=== PATIENT | female | born 1980 | race Caucasian/White ===

== ENCOUNTER → 2023-07-27 14:17 | Outpatient (BNVA) | payer MEDICARE, MEDICAID, SELFPAY | PROVIDERS: PCP Family Medicine; Visit Provider Family Medicine | DX: E03.9 Hypothyroidism, unspecified (principal); R73.03 Prediabetes | CPT/HCPCS: 80053; 83036; 84439; 84443; 84480; 85025 ==

== ENCOUNTER 2023-08-04 13:23 | Outpatient (CLI) | payer MEDICARE, MEDICAID, SELFPAY ==
--- NOTE | 2023-08-04 15:00 | US_ITS ---
WS: [id number] THYROID ULTRASOUND HISTORY: goiter COMPARISON: None available. Right lobe: 1.9 cm x 1.5 cm x 3.7 cm (w x ap x l). Volume: 5.1 cm3. Heterogeneous enlarged thyroid. No discrete well-formed nodules. No increased vascularity. Normal cer vical chain lymph nodes. Left lobe: 1.6 cm x 1.2 cm x 3.4 cm (w x ap x l). Volume: 3.2 cm3. Mildly enlarged heterogeneous nodular thyroid. No discrete nodules. Mild increased vascularity throug hout the gland. Isthmus: 0.2 cm. US/US thyroid [id number] IMPRESSION: 1. Multinodular thyroid. Heterogeneous nodular gland. No discrete nodules are well-defined. Suggest yearly ultrasound evaluation to document stability. If an y nodules become apparent ultrasound can be performed. 2. No adenopathy.
== END 2023-08-04 13:24 | disposition home or self-care (01) ==
LOC: RAD 13:23
PROVIDERS: PCP Family Medicine; Visit Provider Family Medicine
DX: E04.9 Nontoxic goiter, unspecified (principal); E04.2 Nontoxic multinodular goiter
CPT/HCPCS: 76536

== ENCOUNTER 2023-10-12 14:28 | Outpatient (CLI) | payer OTHER, MEDICARE, SELFPAY ==
--- NOTE | 2023-10-12 15:00 | MM_ITS ---
WS: [id number] BILATERAL 3D TOMOSYNTHESIS DIGITAL SCREENING MAMMOGRAM WITH CAD CLINICAL INFORMATION: screening HISTORY: Screening mammogram. No current complaints. COMPARISON: None. TECHNIQUE: Bilateral CC and MLO views. FINDINGS: Fatty-replaced breasts bilaterally. No suspicious focal mass, asymmetry, calcifications, or bpm architect ural distortion. No evidence of malignancy. MM/[place] [id number] IMPRESSION: BI-RADS: 1-Negative FOLLOW UP: 1 Year Follow-up Recommend return to annual screening mammography.
== END 2023-10-12 14:29 | disposition home or self-care (01) ==
LOC: RAD 14:29
PROVIDERS: PCP Family Medicine; Visit Provider Family Medicine
DX: Z12.31 Encounter for screening mammogram for malignant neoplasm of breast (principal); Z13.6 Encounter for screening for cardiovascular disorders; T14.8XXA Other injury of unspecified body region, initial encounter; W57.XXXA Bitten or stung by nonvenomous insect and other nonvenomous arthropods, initial encounter
CPT/HCPCS: 77063; 77067; 80061; 86618; 86666; 86757

== ENCOUNTER → 2024-10-04 13:00 | Outpatient (BNVA) | payer MEDICARE, MEDICAID, SELFPAY | PROVIDERS: PCP Family Medicine; Visit Provider Family Medicine | DX: E03.9 Hypothyroidism, unspecified (principal); R79.89 Other specified abnormal findings of blood chemistry; Z76.89 Persons encountering health services in other specified circumstances; R73.03 Prediabetes | CPT/HCPCS: 80053; 80061; 82607; 83036; 84439; 84443; 85025 ==

== ENCOUNTER → 2024-11-28 12:57 | Outpatient (BNVA) | payer MEDICARE, SELFPAY | PROVIDERS: PCP Family Medicine; Visit Provider Internal Medicine | DX: R00.1 Bradycardia, unspecified (principal); R00.2 Palpitations; R73.03 Prediabetes; E03.9 Hypothyroidism, unspecified; F17.210 Nicotine dependence, cigarettes, uncomplicated | CPT/HCPCS: 99204 ==

== ENCOUNTER 2024-12-29 12:08 | Outpatient (CLI) | payer MEDICARE, SELFPAY ==
--- NOTE | 2024-12-29 14:15 | USCV_ITS ---
Lilly Fox Age: 44 Gender: F : 1980 Exam Date: 12/29/2024 12:28 Ordering Phys: Aristeo Piña M.D ([email or web address]) Technologist: [place] [facility] [place]: near syncope BP: 110 / 75 HR: 64 Rhythm: Sinus Technical Quality: Adequate MEASUREMENTS (Male / Female) Normal Values 2D ECHO LV Diastolic Diameter PLAX 4.5 cm 4.2 - 5.9 / 3.9 - 5.3 cm IVS Diastolic Thickness 1.2 cm 0.6 - 1.0 / 0.6 - 0.9 cm IVS Systolic Thickness 1.3 cm LVPW Diastolic Thickness 1.0 cm 0.6 - 1.0 / 0.6 - 0.9 cm LVPW Systolic Thickness 1.2 cm LVOT Diameter 2.0 cm LV Ejection Fraction 2D Teich 66.0 % LV Ejection Fraction MOD 4C 58.1 % LV Ejection Fraction MOD 2C 76.9 % LV Ejection Fraction 2C AL 77.6 % LA Diameter 3.5 cm RA Systolic Volume 4C AL 35.2 ml RA Systolic Volume 4C MOD 33.8 ml LA Sys Volume AL 48.2 cm cubed LA Sys Volume Index AL 24.6 cm cubed/m squared Aorta at Sinotubular Diameter 2.8 cm IVC Diameter 1.6 cm M-MODE LA Ao Ratio MM 1.3 AV Cusp Separation MM 1.9 cm DOPPLER AV Peak Velocity 125.0 cm/s LVOT Peak Velocity 91.0 cm/s AV Area Cont Eq vti 2.7 cm squared AV Area Cont Eq pk 2.4 cm squared MV Peak Velocity 97.0 cm/s MV Area PHT 3.0 cm squared Mitral E to A Ratio 1.7 TR Peak Velocity 211.0 cm/s TR Peak Gradient 17.8 mmHg TV Peak E Velocity 97.0 cm/s PV Peak Velocity 101.0 cm/s FINDINGS Left Ventricle Normal left ventricular size and systolic function, EF 55-60%. No regional wall motion abnormalities. Right Ventricle Normal in size and function Right Atrium Normal in size Left Atrium Normal in size Mitral Valve Structurally normal mitral valve. Trace mitral valve regurgitation. Aortic Valve Structurally normal aortic valve. No aortic valve stenosis. Tricuspid Valve Insufficient TR jet to calculate RVSP Pulmonic Valve Trace pulmonic regurgitation Pericardium Normal Aorta Normal in size IVC Appears to be normal CONCLUSIONS LV systolic function is normal with EF of 55-60% Trace mitral regurgitation Trace pulmonic regurgitation No comparison studies are available. Aristeo Piña MD (Electronically Signed) Final Date: 03 January 2025 09:48 S
== END 2024-12-29 12:09 | disposition home or self-care (01) ==
LOC: RAD 12:11
PROVIDERS: PCP Family Medicine; Visit Provider Internal Medicine
DX: R55 Syncope and collapse (principal)
CPT/HCPCS: 93306

== ENCOUNTER 2025-02-16 20:58 | Emergency (ER) | payer MEDICARE, SELFPAY ==
--- OUTSIDE RECORDS SUMMARY | 2024-01-23 03:00 | XMS_ITS ---
Author Organization [facility] Address [address] [facility] [address] [place] [address] Care Team Providers Care Metal Template Maker Name Role Phone Dusty Friedman Primary Care Provider Unavailabl e Migration, Provider Unavailable Unavailable REASON FOR VISIT EMR-Marino Encounters Encounter Location Date Provider Diagnosis [facility] [address] [facility] [address] [place] [address] 01/23/2024 Provider Migration Plan Of Treatment No Information Progress Notes * Kevin JURADOB: [birth year] (44 yo M)Acc No.[id number]:01/23/2024 Patient: Diana PRATHERa :1980 A ge:43 Y S ex:Male Phone: Address:[address], [place], [address] Subjective: * Chief Complaints: * E MR-Marino * Medical History: * Surgical History: * Hospitalization/Major Diagno stic Procedure: * Medications: Objective: * Vitals: * Physical Examination: Assessment: Plan: * Treatment: * Procedure Codes: * * Date:
--- OUTSIDE RECORDS SUMMARY | 2024-01-24 03:00 | XMS_ITS ---
Author Organization [facility] Address [address] [facility] [address] [place] [address] Care Team Providers Care Promotions Assistant Name Role Phone Dusty Friedman Primary Care Provider Unavailabl e Migration, Provider Unavailable Unavailable REASON FOR VISIT EMR-Marino Encounters Encounter Location Date Provider Diagnosis [facility] [address] [facility] [address] [facility] [address] [place] [address] 01/24/2024 Provider Migration Plan Of Treatment No Information Progress Notes * Kevin JURADOB: [birth year] (44 yo M)Acc No.[id number]:01/24/2024 Patient: Diana PRATHERa :1980 A ge:43 Y S ex:Male Phone: Address:[address], [place], [address] Subjective: * Chief Complaints: * E MR-Marino * Medical History: * Surgical History: * Hospitalization/Major Diagno stic Procedure: * Medications: Objective: * Vitals: * Physical Examination: Assessment: Plan: * Treatment: * Procedure Codes: * * Date:
[2025-02-16 21:05] VITALS: BP 121/84; PULSE 60; RESP 16; TEMP 36.7; O2SAT 98; BMI 33.6
--- OUTSIDE RECORDS SUMMARY | 2025-02-16 21:06 | XMS_ITS | Patient Health Record ---
Author Organization [facility] Address [address] [place] [address] Care Team Providers Care Data Administrator Name Role Phone KENDALL SON Unavailable [phone] Reason For Referral No Information Problems Problem Type SNOMED Code ICD Code Onset Dates Problem Status W/U Status Risk Notes Problem Generalized abdominal pain (577509655) Generalized abdominal pain (R10.84) Active confirmed Plan Of Treatment No Information Insurance Providers Payer Name Payer Address Payer Phone Subscriber Number Group Number Insured Name Patient Relationship to Insured Coverage Start Date Coverage End Date [place] [employer] [place] [address] [address] [place] [address] [phone] [id number] Lilly Felipe Self - patient is the insured
--- OUTSIDE RECORDS SUMMARY | 2025-02-16 21:06 | XMS_ITS | Patient Health Record ---
Author Organization [facility] Address [address] [address] Care Team Providers Care Newspaper Editor Managing Name Role Phone Dusty Friedman Primary Care Provider Unavailabl e Reason For Referral No Information Plan Of Treatment No Information
--- NOTE | 2025-02-16 22:18 | XRR_ITS ---
PROCEDURE INFORMATION: Exam: XR Chest Exam date and time: 02/16/2025 10:27 PM Age: 44 years old Clinical indication: Shortness of breath TECHNIQUE: Imaging protocol: Radiologic exam of the chest. Views: 2 views. COMPARISON: No relevant prior studies available. FINDINGS: Lungs: Unremarkable. No consolidation. Pleural spaces: Unremarkable. No pleural effusion. No pneumothorax. Heart/Mediastinum: Unremarkable. No cardiomegaly. Bones/joints: Unremarkable. XR/XR chest 2V* [id number] IMPRESSION: No acute findings.
--- NOTE | 2025-02-16 22:19 | ECG_ITS ---
[facility] Test Date: 2025-02-16 Pat Name: Lilly Fox Department: Room: Gender: Female Relationship Assoc: : 1980 Requested By: Mari Buitrago Order Number: [id number] Ana M MD: Aristeo Piña M.D. Measurements Intervals [place] Rate: 58 P: 64 OK: 179 QRS: 77 QRSD: 92 T: 66 QT: 411 QTc: 404 Interpretive Statements SINUS BRADYCARDIA WITH SINUS ARRHYTHMIA INCOMPLETE RIGHT BUNDLE BRANCH BLOCK [90+ ms QRS DURATION, TERMINAL R IN V1/V2, 40+ ms S IN I/aVL/V4/V5/V6] No previous ECG available for comparison Electronically Signed On 02-17-2025 13:06:03 CINDER PIT WORKER by Aristeo Piña M.D. [email or web address]
[2025-02-16 22:53] VITALS: BP 119/79; PULSE 51; RESP 16; O2SAT 98
[2025-02-16 23:27] LABS: Hematocrit 40.6 % (36-47); Hemoglobin 13.50 g/dL (11.27-16.99); Mean Corpuscular HGB Conc 33.3 g/dL (30-55); Mean Corpuscular Hemoglobin 30.1 pg (27-33); Mean Corpuscular Volume 90.6 fl (85-98); Nucleated Red Blood Cells % 0 %; Platelet Count 345 10^3/cmm (157-399); Red Blood Count 4.48 10^6/uL (3.85-5.65); White Blood Count 11.12 10^3/uL (3.29-11.43)
--- NOTE | 2025-02-16 23:28 | ED_ITS ---
HPI - General Adult 2 General: Chief complaint: Shortness of Breath/Dyspnea Stated complaint: SOB Time Seen by Provider: 02/16/25 21:37 History of Present Illness: 44yo F w/cc of exertional dyspnea. Mirian ent states this has been ongoing for 3 weeks since she had a viral upper respiratory infection. In the last 1 week she has not had a fever. Patient denies cough, hemoptysis or syncope or chest pain. She states that with deep breathing, she has discomfort in her left scapula. Patient denies abdominal pain, nausea, vomiting. She denies any diarrhea or dysuria or blood in stool or urine. Patient states that she does not have any leg swelling or leg asymmetry and does not have a history of DVT/PE. Of note, she was seen by cardiology for palpitations in December and had a relatively normal echo. Patient smokes but does not have a history of asthma. Related Data Home Medications ?Medication ?Instructions ?Recorded ?Confirmed diphenhydramine 25 2 tab PO BEDTIME PRN 5 11/28/24 mg-acetaminophen 500 mg tablet (Tylenol PM Extra Strength) Allergies Allergy/AdvReac Type Severity Reaction Status Date / Time Penicillins Allergy Severe anaphylaxis Verified 10/04/24 09:03 i azithromycin (From Zithromax) Allergy Intermediate ALGY-Hives Verified 11/28/24 13:36 iodine Allergy Intermediate Hives Verified 10/04/24 09:03 morphine Allergy Intermediate hives Verified 10/04/24 09:03 codeine Allergy Mild itching Verified 10/04/24 09:03 [facility] ED 2 [facility]: Medical History (Updated 02/17/25 @ 00:14 by Mari Buitrago MD) History of seizure disorder Resolved at age 20 Goiter Hypothyroidism Surgical History History of hysterectomy for cancer History of cervical and ovarian CA History of appendectomy Family History Grandfather Heart disease Stroke Grandmother Congestive heart failure (CHF) Mother Thyroid disease Dementia Diabetes Father Heart disease Skin cancer Social History Smoking and tobacco/nicotine status: current every day tobacco/nicotine user Alcohol intake: never Substance/Drug Use: current Substance/Drug use frequency: few times a month Household members: children Housing: House Marital status: Highest education level completed: Associate Degree: Occupational, Technical, Vocational Program Education level details: MA and Communication Manager Current occupational status: employed Physical Exam 2 Narrative: EXAM NARRATIVE: Vital signs were reviewed. Patient is alert and oriented. Patient is breathing comfortably, no increased WOB or accessory muscle use. SpO2 is above 95% on RA. Patient has clear lungs b/l, no rhonchi, wheezing or crackles. No hypotension or tachycardia. Abdomen is soft, nondistended and nontender. Patient is moving all extremities, no deformity or gross injury. No lower extremity edema or asymmetry. Course 2 Vital Signs: Vital signs: Vital Signs Temperature 98.0 F 02/16/25 21:05 Pulse Rate 50 L 02/17/25 00:00 Respiratory Rate 16 02/17/25 00:00 Blood Pressure 111/67 02/17/25 00:00 Pulse Oximetry 97 02/17/25 00:00 Oxygen Delivery Me thod Room Air 02/16/25 21:[address] [facility] - General Adult Medical Decision Making 44-year-old female presents with chief complaint of shortness of breath since she has had a viral upper respiratory infection starting approximately 3 weeks ago. Differential diagnosis includes but is limited to, viral upper respiratory infection, COPD/asthma, pneumonia, pleurisy, pleural effusion, DVT/PE, other. On exam she is hemodynamically stable. Patient was screened with CBC, BMP, troponin, D-dimer, EKG and chest x-ray. Patient has a normal white blood cell count. She does not have any actionable electrolyte abnormalities. She has a normal troponin and a normal D-dimer. Chest x-ray does not show acute pathology. Patient is not tachypneic, tachycardic and has SpO2 of 98% on room air. Lungs are clear to auscultation without wheezing. At this time, my suspicion for emergent cause of shortness of breath is low. Will recommend close monitoring and outpatient follow-up. Patient was counseled on supportive care at home, given return precautions and discharged in stable condition with recommendation for outpatient follow-up with primary care nurse or doctor. Lab Data 02/16/25 22:54 02/16/25 22:54 Radiology Impressions Chest X-Ray 02/16/25 22:18 IMPRESSION: No acute findings. Laboratory Results WBC 11.12 10^3/uL (3.29-11.43) 02/16/25 22:54 RBC 4.48 10^6/uL (3.85-5.65) 02/16/25 22:54 Hgb 13.50 g/dL (11.27-16.99) 02/16/25 22:54 Hct 40.6 % (36-47) 02/16/25 22:54 MCV 90.6 fl (85-98) 02/16/25 22:54 MCH 30.1 pg (27-33) 02/16/25 22:54 MCHC 33.3 g/dL (30-55) 02/16/25 22:54 RDW 13.2 % (12.1-15.1) 02/16/25 22:54 Plt Count 345 10^3/cmm (157-399) 02/16/25 22:54 MPV 8.8 fL (7.4-10.4) 02/16/25 22:54 Neut % (Auto) 45.8 % 02/16/25 22:54 Lymph % (Auto) 44.8 % 02/16/25 22:54 [place] % (Auto) 4.8 % 02/16/25 22:54 Eos % (Auto) 3.1 % 02/16/25 22:54 Baso % (Auto) 1.2 % 02/16/25 22:54 Neut # (Auto) 5.10 10^3/uL (1.8-7.7) 02/16/25 22:54 Lymph # (Auto) 5.0 10^3/uL (0.8-4.8) H 02/16/25 22:54 [place] # (Auto) 0.5 10^3/uL (0.2-0.9) 02/16/25 22:54 Eos # (Auto) 0.4 10^3/uL (0.0-0.8) 02/16/25 22:54 Baso # (Auto) 0.1 10^3/uL (0.0-0.1) 02/16/25 22:54 Nucleated RBC % (auto) 0 % 02/16/25 22:54 Nucleated RBCs # 0.0 /100WBC 02/16/25 22:54 D-Dimer <= 0.27 ug/mLFEU (0-0.59) 02/16/25 22:54 Sodium 142 mmol/L (136-145) 02/16/25 22:54 Potassium 3.9 mmol/L (3.5-5.1) 02/16/25 22:54 Chloride 105 mmol/L (98-107) 02/16/25 22:54 Carbon Dioxide 25 mmol/L (22-29) 02/16/25 22:54 Anion Gap 15.9 (5-19) 02/16/25 22:54 BUN 11 mg/dL (6-20) 02/16/25 22:54 Creatinine 0.7 mg/dL (0.5-0.9) 02/16/25 22:54 GFR Calculation 90.1 mL/min (90-130) 02/16/25 22:54 Glucose 87 mg/dL (65-115) 02/16/25 22:54 Calculated Osmolality 293 mOsm/kg (285-295) 02/16/25 22:54 Calcium 9.2 mg/dL (8.5-10.5) 02/16/25 22:54 Troponin T Baseline < 6 ng/L (0-10) 02/16/25 22:54 All radiology interpretation(s) finalized by discharge EKG Data EKG 1: Interpretation: EKG shows sinus bradycardia with a heart rate of 58, normal axis, normal intervals, no evidence of ST segment elevation. There is incomplete right bundle morphology which may be a normal variant. No prior EKG available for comparison. Computer generated interpretation: Chest X-Ray 02/16/25 22:18 IMPRESSION: No acute findings. Discharge Plan Discharge Patient Disposition: Home Clinical Impression: Exertional shortness of breath Condition: Stable Prescriptions: No Action diphenhydramine-acetaminophen [Tylenol PM Extra Strength] 25-500 mg tablet 2 tab PO BEDTIME PRN Discharge Orders: Discharge ED (Routine); Ordered 02/17/25 Ordered By: Mari Buitrago Referrals: Maldonado Steven DO [Primary Care Provider, [facility]] Patient Instructions: Opioid Safety, Pain Management, Patient Portal & Carmine Instructions, Shortness of Breath (ED) Activity Restrictions/Additional Instructions: Please continue to monitor your condition closely at home. If your condition worsens or additional concerns arise, please return promptly to the emergency department for reassessment. Follow up with your primary care doctor in one week. Also make a follow up appointment with your government affairs director as soon as you are able. Print Language: Bengali Coding Level of Care Code ED Race Board Attendant for Cotl Col[place]
[2025-02-16 23:31] VITALS: PULSE 53; RESP 16; O2SAT 96
[2025-02-16 23:41] LABS: Troponin(5th) Baseline < 6 ng/L (0-10)
[2025-02-16 23:43] LABS: Anion Gap 15.9 (5-19); Blood Urea Nitrogen 11 mg/dL (6-20); Calcium 9.2 mg/dL (8.5-10.5); Carbon Dioxide 25 mmol/L (22-29); Chloride 105 mmol/L (98-107); Glucose 87 mg/dL (65-115); Osmolality Calculated 293 mOsm/kg (285-295); Potassium 3.9 mmol/L (3.5-5.1); Sodium 142 mmol/L (136-145)
[2025-02-17] VITALS: BP 111/67; PULSE 50; RESP 16; O2SAT 97
[2025-02-17 00:08] LABS: Slide Review Slide Review Perform
[2025-02-17 00:21] VITALS: BP 111/67; PULSE 49; RESP 16; O2SAT 97
== END 2025-02-17 00:21 | disposition home or self-care (01) ==
PROVIDERS: Emergency Provider Emergency Medicine; PCP Family Medicine
DX: R06.02 Shortness of breath (principal); Z72.0 Tobacco use
CPT/HCPCS: 36415; 71046; 80048; 84484; 85025; 85378; 93005; 99285